=== PATIENT | male | born 1965 | race Caucasian/White ===

== ENCOUNTER 2024-10-07 08:31 | Outpatient (CLI) | payer SELFPAY | END 2024-10-07 08:32 | disposition home or self-care (01) | LOC: NFLDREF 10-11 08:04 | PROVIDERS: PCP Nurse Practitioner Family; Referring Provider Nurse Practitioner Family; Visit Provider Nurse Practitioner Family | DX: I10 Essential (primary) hypertension (principal); E11.9 Type 2 diabetes mellitus without complications | CPT/HCPCS: 80053 ==

== ENCOUNTER 2025-01-15 19:04 | Emergency (ER) | payer MEDICAID, OTHER, SELFPAY ==
[2025-01-15 19:08] VITALS: BP 163/93; PULSE 97; RESP 18; TEMP 37.1; O2SAT 98; BMI 28.1
--- NOTE | 2025-01-15 20:15 | ED.GENADULT ---
HPI - General Adult General Time Seen by Provider: 20:15 Date Seen: 01/15/25 Chief complaint: Difficulty Swallowing Stated complaint: food stuck in throat Time Seen by Provider: 01/15/25 20:14 Source: patient and RN notes reviewed Mode of arrival: ambulatory Limitations: no limitations History of Present Illness HPI narrative: This 59-year-old male is coming into the ER with concern of food in his esophagus. He states about 10 days ago he fell sleep on the couch, had a cough drop that he started to swallow, it ended up going into his throat, he jumped up so it would not go into his airway. He felt like that got lodged. On Monday, he went to [employer] and ate chicken, he felt like that stuck in his throat. He since has been able to drink fluids, he ate a small amount of a eggs today. He does have a sense of something feeling stuck in his esophagus but has been able to eat and drink. He is having no difficulty breathing, no acute pain at this time, no fevers or chills. He follows with Odalys Conner, has diabetes, had labs with normal kidney functions. He notes they increased his diabetic medicines/insulin over the summer and his diabetes has improved. He notes he does not have insurance right now. He stated he called the clinic earlier in they told him that they do endoscopy here. I did review with him that we certainly do endoscopy here but we do not do emergent endoscopy, our endoscopy center is not open after hours. He did state that he drank some Coke prior to coming in and actually his esophagus does feel better. Related Data Home Medications ?Medication ?Instructions ?Recorded ?Confirmed berberine-herbal comb no.18 capsule cap PO 02/21/24 01/15/25 lisinopril 5 mg tablet 5 mg PO DAILY 01/15/25 01/15/25 Previous Rx's ?Medication ?Instructions ?Recorded pen needle, diabetic 31 gauge x #100 ea 10/07/24 metformin 1,000 mg tablet 1,000 mg PO BID #60 tabs 10/30/24 insulin glargine 100 unit/mL (3 15 unit (0.15 mL) subcut QDAY #15 12/26/24 mL) subcutaneous pen (Lantus mL Solostar U-100 Insulin) Allergies Allergy/AdvReac Type Severity Reaction Status Date / Time tetracycline Allergy Rash Verified 01/15/25 19:07 Review of Systems Narrative: As per HPI. [facility] Medical History (Updated 01/15/25 @ 20:32 by Tari Farris MD) Hypertension ?I10 - Essential (primary) hypertension (ICD-10) Type 2 diabetes mellitus ?E11.9 - Type 2 diabetes mellitus without complications (ICD-10) Exam Const: Vital Signs, click to edit/add: Vital Signs - 24 hr 01/15/25 19:08 Temperature 98.8 F Pulse Rate [Pulse Oximeter] 97 Respiratory Rate 18 Blood Pressure [Ri ght Upper Arm] 163/93 H Pulse Oximetry 98 Oxygen Delivery Me thod Room Air This 5-year-old male is alert, interactive, no apparent distress. He has traumatic change his left eye, complete visual loss. Right sclera and pupil are normal. Symmetrical facial function, speech is normal, no hoarseness. Oropharynx with normal posterior pharynx, mucosa is normal. Neck is supple, no masses, no adenopathy. Lungs are clear, good air entry, no wheezing crackles, no tachypnea, no accessory muscle use. CV regular rate and rhythm, no murmur, normal S1-S2. Documenting provider has reviewed patient's vital signs: yes Course Course ED Course: Reviewed with patient that he does not require an emergent EGD, would not recommend that he go to another ER as he does not have an active food bolus obstructing. May have a sense of dysphagia from irritation from prior food bolus, could be underlying etiology like esophageal web or stricture. He in I discussed the need for soft foods, drink plenty of fluids. I will place an order for an EGD for him, they will hopefully contact him tomorrow to get this scheduled. Vital Signs Vital signs: Initial Vital Signs Temperature 98.8 F 01/15/25 19:08 Temperature Source Temporal Artery Scan 01/15/25 19:08 Pulse Rate 97 01/15/25 19:08 Respiratory Rate 18 01/15/25 19:08 Blood Pressure 163/93 H 01/15/25 19:08 Blood Pressure Mean 116 H 01/15/25 19:08 Pulse Oximetry 98 01/15/25 19:08 Oxygen Delivery Method Room Air 01/15/25 19:08 Vital Signs Temperature 98.8 F 01/15/25 19:08 Pulse Rate 97 01/15/25 19:08 Respiratory Rate 18 01/15/25 19:08 Blood Pressure 163/93 H 01/15/25 19:08 Pulse Oximetry 98 01/15/25 19:08 Oxygen Delivery Method Room Air 01/15/25 19:08 Temperature 98.8 F 01/15/25 19:08 Pulse Rate 97 01/15/25 19:08 Respiratory Rate 18 01/15/25 19:08 Blood Pressure 163/93 H 01/15/25 19:08 Pulse Oximetry 98 01/15/25 19:08 Oxygen Delivery Method Room Air 01/15/25 19:08 Discharge Plan Discharge Clinical Impression: Dysphagia Qualifiers: Dysphagia type: unspecified Qualified Code(s): R13.10 - Dysphagia, unspecified Patient Disposition: Home, Self-Care Condition: Stable Instructions: Soft Diet (ED), Dysphagia (ED), Upper Endoscopy (DC) Additional Instructions: Your esophagus certainly could be irritated from recent impaction of the cough drop in subsequent issues with the chicken. Try to avoid meat and breads as they can impact easier. Stay on soft foods, review the diet provided. Recommend plenty of fluids. I have put an order in for an EGD here, the endoscopy clinic here at the hospital should hopefully call you tomorrow to get that scheduled. In the meantime, should you have a food impaction that would happen, we do not have emergent endoscopy after hours. During week daytime hours, we usually have somebody in the scope center and certainly can come here. We are usually able to get people in relatively quickly for endoscopy, really try to be careful with your diet to avoid further food bolus impaction. Prescriptions: No Action berberine-herbal comb no.18 Capsule PO (DME) pen needle, diabetic 31 gauge x 5/32 needle See Rx Instructions .Route Qty: 100 0RF Rx Instructions: once daily lisinopril 5 mg tablet 5 mg PO DAILY metformin 1,000 mg tablet 1,000 mg PO BID Qty: 60 4RF insulin glargine [Lantus Solostar U-100 Insulin] 100 unit/mL (3 mL) insulin pen 15 unit subcut QDAY Qty: 15 0RF Follow Up/Referrals: Odalys Conner, COREMAKER SUPERVISOR [Primary Care Provider, Family Practice] [facility] Info Inst[facility]
== END 2025-01-15 20:42 | disposition home or self-care (01) ==
LOC: ED 20:37
PROVIDERS: Emergency Provider Family Medicine; PCP Nurse Practitioner Family
DX: R13.10 Dysphagia, unspecified (principal)
CPT/HCPCS: 99283

== ENCOUNTER 2025-01-21 12:00 | Outpatient (CLI) | payer OTHER, SELFPAY ==
--- NOTE | 2025-01-21 13:28 | P.ANES_ITS ---
Anesthesia Charges Start Date/Time Anesthesia Start Date: 01/21/25 Anesthesia Start Time: 13:00 Stop Date/Time Anesthesia Stop Date: 01/21/25 Anesthesia Stop Time: 13:25 Coding CPT Codes CPT Codes: ANES UPR GI NDSC PX NOS - 62979 ([id number]) P2 - PATIENT W/MILD SYST DISEASE, QK - GETTERING OPERATOR 2-4 CNCRNT ANES PROC, QX - HAND ALTERATIONS SEAMSTRESS SVC W/ MD MED DIRECTION
--- NOTE | 2025-01-21 13:28 | W.ANESCHARGE ---
Anesthesia Charges Start Date/Time Anesthesia Start Date: 01/21/25 Anesthesia Start Time: 13:00 Stop Date/Time Anesthesia Stop Date: 01/21/25 Anesthesia Stop Time: 13:25 Coding CPT Codes CPT Codes: ANES UPR GI NDSC PX NOS - 55530 ([id number]) P2 - PATIENT W/MILD SYST DISEASE, QK - REGISTERED NURSE NURSERY 2-4 CNCRNT ANES PROC, QX - SANDWICH PEDDLER SVC W/ MD MED DIRECTION
--- NOTE | 2025-01-21 13:56 | P.ANES_ITS ---
Anesthesia Charges Start Date/Time Anesthesia Start Date: 01/21/25 Anesthesia Start Time: 13:00 Stop Date/Time Anesthesia Stop Date: 01/21/25 Anesthesia Stop Time: 13:25 Coding CPT Codes CPT Codes: ANES UPR GI NDSC PX NOS - 57849 ([id number]) P2 - PATIENT W/MILD SYST DISEASE, QK - FACILITY ATTENDANT 2-4 CNCRNT ANES PROC, QX - AIR COMPRESSOR MECHANIC SVC W/ MD MED DIRECTION
--- NOTE | 2025-01-21 13:56 | W.ANESCHARGE ---
Anesthesia Charges Start Date/Time Anesthesia Start Date: 01/21/25 Anesthesia Start Time: 13:00 Stop Date/Time Anesthesia Stop Date: 01/21/25 Anesthesia Stop Time: 13:25 Coding CPT Codes CPT Codes: ANES UPR GI NDSC PX NOS - 06316 ([id number]) P2 - PATIENT W/MILD SYST DISEASE, QK - ENDOSCOPY SUPPORT SPECIALIST 2-4 CNCRNT ANES PROC, QX - PARACHUTE LINE TIER SVC W/ MD MED DIRECTION
== END 2025-01-21 12:01 | disposition home or self-care (01) ==
LOC: OP CLINIC 12:02
PROVIDERS: PCP Nurse Practitioner Family; Visit Provider Internal Medicine
DX: R13.10 Dysphagia, unspecified (principal); K22.89 Other specified disease of esophagus
CPT/HCPCS: 00731; 43239; 88305; 88342; J2704; J3490

== ENCOUNTER 2025-02-02 08:50 | Inpatient (IN) | payer OTHER, SELFPAY ==
[2025-02-02] VITALS (9 sets, daily range): BP systolic 133–152; BP diastolic 79–101; PULSE 76–98; RESP 18–28; TEMP 36.4–37.2; O2SAT 97–99; BMI 26.9; BMI 25.4; BMI 25.5
--- OUTSIDE RECORDS SUMMARY | 2025-02-02 08:52 | XMS_ITS | Clinical Summary ---
Author Organization [employer] [facility] Address [address] [place] [id number] Care Team Providers Care Air Traffic Control Supervisor Name Role Phone Pcp, No Primary Care Provider Unavailabl e Allergies Active Allergy Reactions Criticality Noted Date Comments Tetracycline Other - Describe In Comment Field 09/16/2014 Patient states tingling, numbness Radha Benson LPN.................09/16 11:53 AM Medications metFORMIN (GLUCOPHAGE) 1,000 mg tablet Take 1 tablet by mouth 2 times daily with meals. 0 5 Active atorvastatin (LIPITOR) 40 mg tablet Take 1 tablet by mouth once daily. 0 5 Active gentamicin-predniso LONE, 0.3%-1%, (PRED-G) ophthalmic suspension 1 Drop 4 times daily. 1 Bottle 0 5 Active ondansetron (ZOFRAN ODT) 4 mg disintegrating tabletIndications:N ausea Place 1 tablet on the tongue every 8 hours if needed for Nausea/Vomi ting. 25 tablet 0 5 Active lisinopril-hydrochl orothiazide 20-12.5 mg tablet (PRINIZIDE) Take 1 tablet by mouth once daily. 0 5 Active glipiZIDE extended-release (GLUCOTROL XL) 10 mg Extended-Release tablet Take 1 tablet by mouth once daily before a meal. 0 5 Active ofloxacin 0.3 % ophthalmic (OCUFLOX) 0.3 % ophthalmic solutionIndications :Acute bacterial conjunctivitis of left eye Place 2 Drops into left eye four times daily. 5 mL 3 Active Active Problems No known active problems Encounters Date Type Department Care Team Description 01/22/2025 Lab Requisition [facility] [phone] Wenceslao Oviedo MD from Last 3 Months Social History Tobacco Use Types Packs/Day Years Used Date Smoking Tobacco: Former Cigarettes 0.5 3 0 04/10/1981 - 04/10/1984 Smokeless Tobacco: Never Tobacco Cessation:Counseling Given: Not Answered Alcohol Use Standard Drinks/Week Comments Yes 0 (1 standard drink = 0.6 oz pur e alcohol) occ Sex and Gender Information Value Date Recorded Sex Assigned at Not on file Legal Sex Male 5:44 AM COBBLER UPPER Gender Identity Not on file Sexual Orientation Not on file Obstetrics History Last Filed Vital Signs Vital Sign Reading Time Taken Comments Blood Pressure 140/90 04/01/2023 2:50 PM COBBLER UPPER Pulse 99 04/01/2023 2:23 PM COBBLER UPPER Temperature 36.7 C (98.1 F) 04/01/2023 2:23 PM COBBLER UPPER Respiratory Rate 16 04/01/2023 2:23 PM COBBLER UPPER Oxygen Saturation 96% 04/01/2023 2:23 PM COBBLER UPPER Inhaled Oxygen Concentration - - Weight 81.4 kg (179 lb 6.4 oz) 04/01/2023 2:23 P M COBBLER UPPER Height 180.3 cm (5' 10.98) 10/09/2014 11:14 AM CDT Body Mass Index 25.03 10/09/2014 11:14 AM CDT Plan of Treatment Health Maintenance Due Date Last Done Comments Tetanus booster 08/17/1975 Depression screening for age 12+ 1976 HIV for age 15-65 08/17/1979 BMI (ht and wt on same day) for age 18+ 1982 Hepatitis C screening for ag e 18-79 1982 Colonoscopy through age 75 2009 Lipids for age 45-75 2009 Pneumococcal series for age 50+ (1 of 1 - PCV) 2014 Zoster (shingles) series for age 50+ (1 of 2) 2014 COVID-19 vaccine series (1 - 2023- season) 2024 Influenza Vaccine (#1) 2024 RSV vaccine for adults or (1 - 1-dose 75+ series) 08/17/2039 Hepatitis B series for 19+ Aged Out N o longer eligible based on patient's age to complete this topic Procedures Procedure Name Priority Date/Time Associated Diagnosis Comments PATH TISSUE EXAM Routine 01/21/2025 1:26 PM CDT LAB TRACKING EVENT Routine 01/21/2025 1: 12 PM CDT from Last 3 Months Results * PATH TISSUE EXAM (01/21/2025 1:26 PM CDT) Case Report Pathology Report Case: [id number] Authorizing Provider: Wenceslao Oivedo MD Collected: 01/21/2025 1326 Ordering Location: [facility] Received: 01/23/2025 1700 Pathologist: Dean Vanessa MD Specimens: A) - Duodenum Biopsy B) - Stomach Biopsy C) - Distal Esophagus Biopsy D) - Mid Esophagus Biopsy 11:16 AM CDT [facility] Study2gether [facility] Final Diagnosis A) DUODENUM, BIOPSY: 1. Single fragment of normal duodenal mucosa 2. Negative for celiac disease and other enteropathy B) STOMACH, BIOPSY: 1. Mild non-specific chronic inflammation (see comment) a. Sampling: Body mucosa b. Distribution: Body mucosa 2. Negative for atrophic gastritis 3. Negative for Helicobacter (Helicobacter immunohistochemistry negative) C) ESOPHAGUS, DISTAL, BIOPSY: 1. Normal esophageal squamous mucosa 2. Gastric cardio-oxyntic type mucosa with nonspecific reactive changes 3. Negative for reflux changes and eosinophilic esophagitis 4. Negative for intestinal metaplasia and dysplasia D) ESOPHAGUS, MID, BIOPSY: 1. Normal esophageal squamous mucosa 2. Negative for reflux changes and eosinophilic esophagitis 3. Negative for columnar mucosa 11:16 AM CDT [facility] at 1115 CDT Comment B) Mild chronic inflammation in the stomach in the absence of Helicobacter often remains unexplained, but it could reflect prior or treated Helicobacter infection. The likelihood of histologically undetected Helicobacter is quite low in our opinion. 11:16 AM CDT [facility] Clinical Information Dysphagia EGD findings: Normal 11:16 AM CDT [facility] Gross Description A) Received in formalin is a pete mucosal fragment measuring 7 mm in greatest dimension, which is entirely submitted in one cassette. It is labeled with the patient's name and designated duodenum, first portion. B) Received in formalin are 4 pete mucosal fragments ranging from 3 mm to 7 mm in greatest dimension, which are entirely submitted in one cassette. It is labeled with the patient's name and designated stomach, random. C) Received in formalin is a pete mucosal fragment measuring 4 mm in greatest dimension, which is entirely submitted in one cassette. It is labeled with the patient's name and designated distal esophagus. D) Received in formalin are 2 pete mucosal fragments averaging 4 mm in greatest dimension, which are entirely submitted in one cassette. It is labeled with the patient's name and designated mid esophagus. Tammy Garcia 01/23/2025 6:10 PM 11:16 AM CDT [facility] Microscopic Description The final diagnosis is based on microscopic examination of appropriate sections of all specimens. 11:16 AM CDT [facility] Additional Information Interpreted at [facility] - [address] [facility] [address], [place] [address] Immunohistochemistry controls were reviewed and approved as appropriate by the pathologist during this examination. 11:16 AM CDT [facility] Other (Duodenum Biopsy) 01/21/2025 1:26 PM CDT 01/23/2025 5:00 PM CDT Specimen (specimen) (Stomach Biopsy) 01/21/2025 1:26 PM CDT 01/23/2025 5:00 PM CDT Specimen (specimen) (Distal Esophagus Biopsy) 01/21/2025 1:26 PM CDT 01/23/2025 5:00 PM CDT Specimen (specimen) (Mid Esophagus Biopsy) 01/21/2025 1:26 PM CDT 01/23/2025 5:00 PM CDT us Wenceslao Oviedo MD PATHOLOGY/CYTOLOGY Final Res ult [facility] [address] [place] [address], [place] * LAB TRACKING EVENT (01/21/2025 1:12 PM CDT) Other (Other) Client Collect / Unknown 01/21/2025 1:12 PM CDT 01/22/2025 8:32 AM CDT us Wenceslao Oviedo MD LAB BILL ONLY Final Result [facility] [address] [place] [address], from Last 3 Months Care Teams Air Traffic Control Supervisor Relationship Specialty Start Date End Date Pcp, No . PCP - General 09/12/14
--- OUTSIDE RECORDS SUMMARY | 2025-02-02 08:52 | XMS_ITS | Clinical Summary ---
Author Organization [facility] Address [address] [place] [address] Care Team Providers Care Fish Roe Technician Name Role Phone Unavailable Primary Care Provider Unavailabl e Allergies Active Allergy Reactions Criticality Noted Date Comments Tetracycline 10/02/2014 Medications prednisoLONE acetate (PRED FORTE) 1 % ophthalmic susp Place 1 drop Into the left eye 4 times daily Active metFORMIN (GLUCOPHAGE) 1000 MG tabletIndicatio ns:Type 2 diabetes mellitus with diabetic neuropathy, without long-term current use of insulin (H) Take 1 tablet (1,000 mg) by mouth daily (with dinner) 90 tablet 3 11/25/2016 Active blood glucose monitoring (NO BRAND SPECIFIED) test stripIndication s:Type 2 diabetes mellitus without complication, without long-term current use of insulin (H) Use to test blood sugars 0ne times daily or as directed 100 strip 03/21/2017 Active metFORMIN (GLUCOPHAGE) 500 MG tabletIndicatio ns:Type 2 diabetes mellitus without complication, without long-term current use of insulin (H) Take 1 tablet (500 mg) by mouth daily (with dinner) 90 tablet 1 03/21/2017 Active Active Problems Problem Noted Date Diagnosed Date Type 2 diabetes mellitus wit hout complication, without long-term current use of insulin 02/11/2016 Benign essential hypertension 02/11/2016 Hyperglycemia 02/22/2015 Resolved Problems Problem Noted Date Diagnosed Date Resolved Date Type 2 diabetes mellitus wit h hyperosmolarity without coma 03/25/2015 02/11/2016 Immunizations Immunization Administration Dates Next Due Influenza Vaccine 18-64 (Flublok) 02/14/2019,12/2017 Influenza Vaccine >6 months,quad, PF 03/21/2017, 03/23/2016,01/13/2015 Pneumococcal 23 valent 01/13/2015 TDAP Vaccine (Adacel) 04/22/2016 Social History Tobacco Use Types Packs/Day Years Used Date Smoking Tobacco: Former Smokeless Tobacco: Former Tobacco Cessation:Counseling Given: Yes Alcohol Use Standard Drinks/Week Comments Yes 0 (1 standard drink = 0.6 oz pur e alcohol) casually PHQ-2 Answer Date Recorded PHQ-2 Score 0 04/17/2018 Sex and Gender Information Value Date Recorded Sex Assigned at Not on file Legal Sex Male 3:43 AM MECHANICAL SERVICE REPRESENTATIVE Gender Identity Not on file Sexual Orientation Not on file Last Filed Vital Signs Vital Sign Reading Time Taken Comments Blood Pressure 138/88 03/21/2017 11:41 AM MECHANICAL SERVICE REPRESENTATIVE Pulse 60 03/21/2017 11:41 AM MECHANICAL SERVICE REPRESENTATIVE Temperature 36.3 C (97.4 F) 03/21/2017 11:41 AM MECHANICAL SERVICE REPRESENTATIVE Respiratory Rate 12 03/21/2017 11:4 1 AM MECHANICAL SERVICE REPRESENTATIVE Oxygen Saturation 100% 11/25/2016 10: 29 AM CDT Inhaled Oxygen Concentration - - Weight 64.9 kg (143 lb) 03/21/2017 11:4 1 AM MECHANICAL SERVICE REPRESENTATIVE patient reported Height 180.3 cm (5' 11) 03/21/2017 11: 41 AM MECHANICAL SERVICE REPRESENTATIVE Body Mass Index 19.94 03/21/2017 11:41 AM MECHANICAL SERVICE REPRESENTATIVE Plan of Treatment Not on file
--- NOTE | 2025-02-02 09:20 | CRLHL7_ITS ---
For Patients: As a result of the Century Cures Act, medical imaging exams and procedure reports are released immediately into your electronic medical record. You may view this report before your referring provider. If you have questions, please contact your health care provider. INDICATION: Shortness of breath. COMPARISON: None available. TECHNIQUE: PA and lateral views of the chest. FINDINGS: Medical Devices: None. Lung Volumes: Adequate inspiration. Lungs: Bibasilar atelectasis. Consolidation may coexist. Recommend clinical correlation as to any corroborative evidence of pneumonia. Pleura and Pleural spaces: Bilateral small pleural effusions. No pneumothorax. Mediastinum: Normal cardiomediastinal silhouette. Bony Thorax and Soft Tissues: No significant incidental findings. IMPRESSION: Bibasilar atelectasis associated with small bilateral pleural effusions. Consolidation may coexist. Recommend clinical correlation as to any corroborative evidence of pneumonia. Dictated by Mohsen Pickard MD @ 02/02/2025 9:40:24 AM (Electronically Signed)
[2025-02-02] MEDS: FUROSEMIDE 10 MG/ML inj 40 MG IVP ×2 (09:43→16:19)
[2025-02-02 09:51] LABS: Hematocrit* 40.7 % (37.0-53.0); Hemoglobin* 13.7 gm/dL (13.5-17.5); Immature Granulocytes Abs Auto 0.01 K/uL (0.00-0.30); Immature Granulocytes Pct Auto 0.1 %; Mean Corpuscular HGB Conc 34 gm/dL (32-36); Mean Corpuscular Hemoglobin 31 pg (26-34); Mean Corpuscular Volume 91 fL (80-100); RDW Coefficient of Variation % 13.3 % (11.5-15.5); Red Blood Count* 4.49 m/uL (4.30-5.90); White Blood Count* 8.58 K/uL (4.50-11.00)
[2025-02-02 09:55] LABS: Lymphocytes Absolute Auto 1.30 K/uL (0.90-2.90)
[2025-02-02 09:56] LABS: Slide Review Reflex No
[2025-02-02 10:19] LABS: Albumin* 3.6 g/dL (3.3-5.0); Chloride* 100 mmol/L (96-114); Sodium* 133 mmol/L (135-149)
[2025-02-02 10:20] LABS: Potassium* 4.1 mmol/L (3.6-5.1)
[2025-02-02 10:22] LABS: Alanine Aminotransferase* 36 U/L (4-50); Alkaline Phosphatase* 87 U/L (40-150); Anion Gap 5 mEq/L (7-15); Aspartate Amino Transferase* 28 U/L (12-35); Bilirubin Direct* 0.2 mg/dL (0.0-0.5); Bilirubin Total* 0.9 mg/dL (0.1-1.5); Blood Urea Nitrogen* 18 mg/dL (7-30); Carbon Dioxide* 28 mmol/L (20-32); Creatinine* 0.9 mg/dL (0.5-1.5); Est. Creatinine Clearance* 92.96; Estimated Glomerular Filt Rate 98 ml/min; Total Protein* 6.0 g/dL (6.0-8.3)
[2025-02-02 10:23] LABS: Calcium* 8.8 mg/dL (8.4-10.6); Glucose* 88 mg/dL (60-115)
[2025-02-02 10:30] LABS: Troponin, Point-of-Care* 0.02 ng/ml (0.01-0.04)
[2025-02-02 10:34] LABS: NT Pro B Type NatriureticPept* 5060 pg/mL (See Note)
--- NOTE | 2025-02-02 11:12 | ED.GENADULT ---
HPI - General Adult General Date Seen: 02/02/25 Chief complaint: Shortness of Breath/Dyspnea Stated complaint: breathing problems and male genital issue Time Seen by Provider: 02/02/25 09:10 History of Present Illness HPI narrative: Patient is a 59-year-old male presenting with shortness of breath, which he notes has been worsening over the past week or 2. He was seen here couple of weeks ago, at that time complain more of a sensation of esophageal foreign body, although he says now that he thinks that was the start of these symptoms. He did undergo upper endoscopy on the which was unremarkable. He says since then he has been getting more shortness of breath, describes orthopnea and PND, notes swelling in his legs as well as a significantly swollen scrotum without any pain. He denies having chest pain, denies any prior cardiac history. He does have a history of type 2 diabetes and hypertension. He quit smoking many years ago. Denies significant alcohol use. Related Data Home Medications ?Medication ?Instructions ?Recorded ?Confirmed berberine-herbal comb no.18 capsule cap PO 02/21/24 01/15/25 lisinopril 5 mg tablet 5 mg PO DAILY 01/15/25 02/02/25 lisinopril 10 mg tablet 10 mg PO DAILY 02/02/25 02/02/25 Previous Rx's ?Medication ?Instructions ?Recorded metformin 1,000 mg tablet 1,000 mg PO BID #60 tabs 10/30/24 insulin glargine 100 unit/mL (3 15 unit (0.15 mL) subcut QDAY #15 12/26/24 mL) subcutaneous pen (Lantus mL Solostar U-100 Insulin) pen needle, diabetic 31 gauge x #100 ea 01/21/25 Allergies Allergy/AdvReac Type Severity Reaction Status Date / Time tetracycline Allergy Rash Verified 02/02/25 09:07 Review of Systems Status of ROS: Reports: 10 or more systems reviewed and unremarkable except as noted in History and below [facility] Medical History Hypertension ?I10 - Essential (primary) hypertension (ICD-10) Type 2 diabetes mellitus ?E11.9 - Type 2 diabetes mellitus without complications (ICD-10) Exam Narrative: Exam Narrative: Vital signs reviewed In general, alert, nontoxic man, looks older than his stated age. Mild tachypnea. Head: Normocephalic, atraumatic. Eyes: Sclera clear. Pupils equal and reactive. ENT: Mucous membranes moist. Neck: Supple without adenopathy. Heart: Regular rate and rhythm without murmur. Lungs: Breath sounds are decreased bilaterally, no significant increased work of breathing other than mild tachypnea. No crackles or wheezes. Abdomen: Soft, nontender to palpation. Extremities: Large pitting edema bilateral lower extremities. No erythema or tenderness. Neurologic: Alert, conversant. Speech fluent, face symmetric. Moves all extremities equally. Skin: Warm, dry well perfused. Affect: Normal. Const: Vital Signs, click to edit/add: Vital Signs - 24 hr 02/02/25 08:57 02/02/25 10:25 02/02/25 11:01 Temperature 99.0 F Pulse Rate [Pulse Oximeter] 79 96 Respiratory Rate 26 H 28 H Blood Pressure [Ri ght Upper Arm] 147/87 H 134/79 Pulse Oximetry 99 97 Oxygen Delivery Me thod Room Air Room Air Course Course ED Course: Patient presents with worsening shortness of breath, orthopnea, P ND, edema over the past week and half. Diagnostic considerations would include most likely congestive heart failure, rule out renal insufficiency, acute coronary syndrome, myocarditis, Following initial evaluation, patient had an EKG which by my review shows a sinus rhythm, ventricular rate of 100. Poor R-wave progression, no acute ST segment changes unremarkable T-waves. Labs were ordered, an IV was placed and I gave him 40 mg of IV Lasix. Labs notable for white count of 8.5, hemoglobin of 13.7, electrolytes are normal, BUN 18 creatinine 0.9. Blood sugar is 88, LFTs unremarkable, CRP less than 0.5 and BNP elevated at 5060. Chest x-ray by my review showed small bilateral pleural effusions, radiology report reviewed in the note that underlying infiltrate cannot be ruled out. I am less suspicious of an infectious cause for his symptoms. Point of care troponin was normal at 0.02. Reviewed the findings with patient, he has had good diuresis with the Lasix and says he is starting to feel better. His O2 sats have remained around 97% on room air. I did look with a bedside ultrasound, he has significantly reduced left ventricular function based on my exam. Discussed with cardiology who recommends admission for IV diuresis, echo. Discussed with hospitalist, admitted to our service. Vital Signs Vital signs: Initial Vital Signs Temperature 99.0 F 02/02/25 08:57 Temperature Source Temporal Artery Scan 02/02/25 08:57 Pulse Rate 79 02/02/25 08:57 Respiratory Rate 26 H 02/02/25 08:57 Blood Pressure 147/87 H 02/02/25 08:57 Blood Pressure Mean 107 H 02/02/25 08:57 Blood Pressure Position Sitting 02/02/25 08:57 Pulse Oximetry 99 02/02/25 08:57 Oxygen Delivery Method Room Air 02/02/25 08:57 Vital Signs Temperature 99.0 F 02/02/25 08:57 Pulse Rate 79 02/02/25 08:57 Respiratory Rate 26 H 02/02/25 08:57 Blood Pressure 147/87 H 02/02/25 08:57 Pulse Oximetry 99 02/02/25 08:57 Oxygen Delivery Method Room Air 02/02/25 08:57 Temperature 99.0 F 02/02/25 08:57 Pulse Rate 96 02/02/25 11:01 Respiratory Rate 28 H 02/02/25 11:01 Blood Pressure 134/79 02/02/25 10:25 Pulse Oximetry 97 02/02/25 11:01 Oxygen Delivery Method Room Air 02/02/25 11:01 Medications Administered Medications: Discontinued Medications Generic Name Dose Route Start Last Admin Trade Name Freq PRN Reason Stop Dose Admin Furosemide 40 mg 02/02/25 09:19 02/02/25 09:43 Furosemide 10 Mg/Ml Inj IVP 02/02/25 09:20 40 mg ONCE ONE Administration Medical Decision Making Lab Data Labs: Lab Results 02/02/25 02/02/25 Range/Units 09:20 09:35 WBC 8.58 (4.50-11.00) K/uL RBC 4.49 (4.30-5.90) m/uL Hgb 13.7 (13.5-17.5) gm/dL Hct 40.7 (37.0-53.0) % MCV 91 (80-100) fL MCH 31 (26-34) pg MCHC 34 (32-36) gm/dL RDW Coeff of Jelani 13.3 (11.5-15.5) % Plt Count 297 (140-440) K/uL Neut % (Auto) 76.2 H (42.0-72.0) % Lymph % (Auto) 15.3 L (20-44) % [place] % (Auto) 6.3 (0.0-11.0) % Eos % (Auto) 1.6 (0.0-7.0) % Baso % (Auto) 0.5 (0.0-3.0) % Neut # (Auto) 6.50 (1.7-7.0) K/uL Lymph # (Auto) 1.30 (0.90-2.90) K/uL [place] # (Auto) 0.50 (0.00-0.90) K/UL Eos # (Auto) 0.14 (0.00-0.50) K/uL Baso # (Auto) 0.04 (0.00-0.30) K/uL Abs Immat Gran (auto) 0.01 (0.00-0.30) K/uL Imm/Tot Granulo (auto) 0.1 % Sodium 133 L (135-149) mmol/L Potassium 4.1 (3.6-5.1) mmol/L Chloride 100 (96-114) mmol/L Carbon Dioxide 28 (20-32) mmol/L Anion Gap 5 L (7-15) mEq/L BUN 18 (7-30) mg/dL Creatinine 0.9 (0.5-1.5) mg/dL Estimated Creat Clear 92.96 Estimated GFR 98 ml/min Glucose 88 (60-115) mg/dL Calcium 8.8 (8.4-10.6) mg/dL Magnesium 1.9 (1.5-2.6) mg/dL Total Bilirubin 0.9 (0.1-1.5) mg/dL Direct Bilirubin 0.2 (0.0-0.5) mg/dL AST 28 (12-35) U/L ALT 36 (4-50) U/L Alkaline Phosphatase 87 (40-150) U/L C-Reactive Protein < 0.5 L (0.5-1.0) mg/dL NT-Pro-B Natriuret Pep 5060 H (See Note) pg/mL Total Protein 6.0 (6.0-8.3) g/dL Albumin 3.6 (3.3-5.0) g/dL POC Troponin I 0.02 (0.01-0.04) ng/ml Discharge Plan Discharge Clinical Impression: Congestive heart failure Patient Disposition: Admitted As Inpatient Condition: Stable
--- NOTE | 2025-02-02 14:21 | P.IMHP_ITS ---
Assessment and Plan Assessment and plan (1) Congestive heart failure: Problem comment: - acute, new diagnosis. Likely exacerbated recently by switch to canned foods and restarting use of table salt. Elevated pro BNP, bilateral ankle and scrotal edema, dyspnea on exertion. Has h/o HTN, DM2. - Admit for diuresis with IV furosemide - Obtain ECHO - Will consider starting Jardiance (for diabetes and CHF) if EF decreased - Monitor on cardiac telemetry - FR, heart healthy, low salt diet. Status: Acute (2) Hypertension: Problem comment: - Noncompliant with lisinopril due to dizziness. Continue at a lower dose. Status: Chronic (3) Type 2 diabetes mellitus: Problem comment: - HgbA1c 10% in September, down to 7.8% by December after starting Lantus. Continue Lantus at home dose. Start ISS and will consider Jardiance as above. Status: Chronic (4) Rash: Problem comment: - Over ankles, diabetic, suspect tinea - Trial of triamcinolone cream Status: Acute (5) Hyponatremia: Problem comment: - Mild asymptomatic, likely due to HF. Start FR, monitor Status: Acute (6) Globus sensation: Problem comment: Several weeks of this symptom, EGD in early January negative. Patient states it is improving, but impairs swallowing to some extent. Speech consult for swallowing. Status: Acute (7) Swallowing problem: Problem comment: as above. Status: Acute Hospitalist- H&P: HPI History of Present Illness Time Seen by Provider: 12:30 Date Seen: 02/02/25 Chief complaint: breathing problems and male genital issue Narrative: Hair Strong is a 59 year old male with a history of hypertension and diabetes mellitus type 2 who presented through the emergency department for dyspnea and lower extremity swelling. He tells me that his symptoms started about 5 weeks ago when he fell asleep on the couch with a lozenge in his mouth that was gone when he woke up and he felt like it had gotten stuck in his throat. After that he had a persistent globus sensation and noted worsening shortness of breath with exertion. Due to the persistent globus sensation he had an EGD on 01/21/2025 which found only an irregular Z-line, biopsies were obtained. Due to the feeling of a globus sensation he had difficulty swallowing his usual diet of homemade foods and switched to canned foods, also adding ?rock salt,? which as far as I can gather is likely pink Himalayan salt. He notes that the globus sensation has started to improve, but has not completely subsided yet. 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 This past week he has noticed worsening lower extremity edema, which was not there before. Today he felt swollen scrotum and said his scrotum looked like it was the size of a grapefruit, which ultimately brought him to the emergency department. He says it is a little bit better now after having gotten Lasix in the emergency department. He denies any recent illnesses, fevers, coughs or colds. He said he was not sick at the time he felt the lozenge get lodged in his throat. He denies chest pain or pressure. Review of Systems Status of ROS: Reports: 10 or more systems reviewed and unremarkable except as noted in History and below Medical Decision Making Medical Decision Making Code Status: FULL CODE Has patient completed a Health Care Directive: No [facility] Medical History DVT (deep venous thrombosis) ?I82.409 - Acute embolism and thrombosis of unspecified deep veins of unspecified lower extremity (ICD-10) Hypertension ?I10 - Essential (primary) hypertension (ICD-10) Type 2 diabetes mellitus ?E11.9 - Type 2 diabetes mellitus without complications (ICD-10) Surgical History (Updated 02/02/25 @ 15:20 by Neisha Rodriguez MD) H/O resection of rib ?Z98.890 - Other specified postprocedural states (ICD-10) H/O vitrectomy ?Z98.890 - Other specified postprocedural states (ICD-10) Social History (Updated 02/02/25 @ 15:20 by Neisha Rodriguez MD) Narrative: Lives independently. 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 Less than 5 year history of smoking when he was in his late teens. No other tobacco use. Alcohol use couple of times a year, less than once a month. Denies recreational drug use. What is your current living situation?: I presently have a place to live Problems where you live: no known problems Problems where you live details: n/a In the past 12 months, utilities in danger of being shut off: no In past 12 months, lack of transportation kept you from medical appts, meetings, work, or getting things needed for daily living: unable to answer In the past 12 mos, have been you worried that your food would run out before you had money to buy more?: never true In the past 12 mos, the food you bought just didn't last and you didn't have money to buy more?: never true Highest level of school completed/degree received: don't know Smoking Status: Unknown if ever smoked Do you use any of these nicotine containing products: None How often do you have a drink containing alcohol: monthly or less How often do you have six or more drinks on one occasion: Never AUDIT-C Alcohol total score: 1 Non-prescribed substance use: denies use Caffeine: No How often does anyone, including family, friends and others, physically hurt you : never How often does anyone, including family, friends and others, insult or talk down to you: never How often does anyone, including family, friends and others, threaten you with harm: never How often does anyone, including family, friends and others, scream or curse at you: never service: No Meds Home Medications and Allergies Home Medications ?Medication ?Instructions ?Recorded ?Confirmed ?Type berberine-herbal comb no.18 capsule 1 cap PO .ud 02/2002/02/25 History metformin 1,000 mg tablet 1,000 mg PO BID #60 tabs 02/02/25 Rx lisinopril 5 mg tablet 5 mg PO HS 01/15/25 02/02/25 History pen needle, diabetic 31 gauge x #100 ea 01/21/25 Rx insulin glargine 100 unit/mL (3 10 unit subcut DAILY 1 02/02/25 History mL) subcutaneous pen (Lantus Solostar U-100 Insulin) Allergies Allergy/AdvReac Type Severity Reaction Status Date / Time tetracycline Allergy Rash Verified 02/02/25 09:07 Exam Narrative: Exam Narrative: General: No acute distress. Awake alert oriented x3. HEENT: Normocephalic atraumatic, left eye cloudy, chronic complete vision loss. Oropharynx clear. Mucous membranes are moist. No cervical lymphadenopathy, thyromegaly or carotid bruits. No JVD. Hepatic jugular reflux is present at 45?. Cardiovascular: Regular rate and rhythm. No murmurs, gallops, or rubs. Chest: No increased work of breathing laying in bed. Diminished breath sounds at bases with fine bibasilar crackles, no wheezing. Abdomen: Bowel sounds present. Soft, nondistended, nontender. No hepatosplenomegaly or masses. Genitourinary: Circumcised male with moderate scrotal edema. Extremities: 2 to 3+ bilateral pitting edema to the thighs, especially prominent in ankles, no cyanosis or clubbing. Skin: Linear spots of erythema over bilateral shins, which patient states are from his boots. There also distinct circular erythematous lesions about the size of quarters over his ankles with mild central clearing and slight scale. There is no discharge from any of these. No jaundice, no pallor. Neuro: Grossly intact. No focal deficits. Const: Vital Signs, click to edit/add: Vital Signs - 24 hr 02/02/25 08:57 02/02/25 10:25 02/02/25 11:01 Temperature 99.0 F Pulse Rate [Pulse Oximeter] 79 96 Respiratory Rate 26 H 28 H Blood Pressure [Ri ght Upper Arm] 147/87 H 134/79 Pulse Oximetry 99 97 Oxygen Delivery Me thod Room Air Room Air 02/02/25 11:55 Temperature Pulse Rate [Pulse Oximeter] 98 Respiratory Rate 28 H Blood Pressure [Ri ght Upper Arm] 141/101 H Pulse Oximetry 98 Oxygen Delivery Co thod Room Air Hospitalist - H&P: Result Labs Labs: Short CBC 02/02/25 Range/Units 09:35 WBC 8.58 (4.50-11.00) K/uL Hgb 13.7 (13.5-17.5) gm/dL Hct 40.7 (37.0-53.0) % Plt Count 297 (140-440) K/uL BMP 02/02/25 09:35 Sodium 133 L Potassium 4.1 Chloride 100 Carbon Dioxide 28 BUN 18 Creatinine 0.9 Glucose 88 Calcium 8.8 Liver Function 02/02/25 Range/Units 09:35 Total Bilirubin 0.9 (0.1-1.5) mg/dL Direct Bilirubin 0.2 (0.0-0.5) mg/dL AST 28 (12-35) U/L ALT 36 (4-50) U/L Alkaline Phosphatase 87 (40-150) U/L Albumin 3.6 (3.3-5.0) g/dL EKG was done in ER, currently unavailable to me. ER staff will scan it in. Ordering Physician: Peace Schmitz M.D. Date of Service: 02/02/25 Procedure(s): XR chest 2V Accession Number(s): [id number] cc: Peace Schmitz M.D.; ANTONIO,Odalys Conner~ For Patients: As a result of the Cures Act, medical imaging exams and procedure reports are released immediately into your electronic medical record. You may view this report before your referring provider. If you have questions, please contact your health care provider. INDICATION: Shortness of breath. COMPARISON: None available. TECHNIQUE: PA and lateral views of the chest. FINDINGS: Medical Devices: None. Lung Volumes: Adequate inspiration. Lungs: Bibasilar atelectasis. Consolidation may coexist. Recommend clinical correlation as to any corroborative evidence of pneumonia. Pleura and Pleural spaces: Bilateral small pleural effusions. No pneumothorax. Mediastinum: Normal cardiomediastinal silhouette. Bony Thorax and Soft Tissues: No significant incidental findings. IMPRESSION: Bibasilar atelectasis associated with small bilateral pleural effusions. Consolidation may coexist. Recommend clinical correlation as to any corroborative evidence of pneumonia. Dictated by Mohsen Pickard MD @ 02/02/2025 9:40:24 AM (Electronically Signed)
--- NOTE | 2025-02-02 14:22 | CRLHL7_ITS ---
For Patients: As a result of the Century Cures Act, medical imaging exams and procedure reports are released immediately into your electronic medical record. You may view this report before your referring provider. If you have questions, please contact your health care provider. Technique : Bilateral lower extremity edema. TECHNIQUE: Grayscale and color Doppler images of the venous system of both lower extremities with spectral Doppler analysis. FINDINGS: The common femoral, superficial femoral, deep femoral, greater saphenous, popliteal, posterior tibial and peroneal veins demonstrate normal flow, compressibility and augmentation bilaterally. IMPRESSION: Negative for deep venous thrombosis within both lower extremities. Dictated by Yves Olson MD @ 02/02/2025 4:22:47 PM (Electronically Signed)
[2025-02-02] MEDS: INSULIN ASPART 100 UNIT/ML SUBCUT (20:44)
[2025-02-02] MEDS: TRIAMCINOLONE ACETONIDE CREAM 0.1 % 1 APPLIC TOPICAL (20:46)
[2025-02-02] MEDS: ENOXAPARIN 40 MG/0.4 ML INJ SUBCUT (20:46)
[2025-02-02] MEDS: SODIUM CHLORIDE 0.9 % (FLUSH) 10 ML SYRINGE 5 ML IVF (20:48)
[2025-02-03 02:36] VITALS: BP 114/74; PULSE 79; RESP 18; TEMP 36.5; O2SAT 94
[2025-02-03 07:00] VITALS: BP 134/82; PULSE 73; PULSE 93; RESP 20; TEMP 37.1; O2SAT 96
[2025-02-03 07:01] LABS: Hematocrit* 42.2 % (37.0-53.0); Hemoglobin* 14.3 gm/dL (13.5-17.5); Immature Granulocytes Abs Auto 0.01 K/uL (0.00-0.30); Immature Granulocytes Pct Auto 0.2 %; Lymphocytes Absolute Auto 1.51 K/uL (0.90-2.90); Mean Corpuscular HGB Conc 34 gm/dL (32-36); Mean Corpuscular Hemoglobin 30 pg (26-34); Mean Corpuscular Volume 90 fL (80-100); RDW Coefficient of Variation % 13.2 % (11.5-15.5); Red Blood Count* 4.71 m/uL (4.30-5.90); White Blood Count* 6.17 K/uL (4.50-11.00)
[2025-02-03 07:02] LABS: Slide Review Reflex No
[2025-02-03 07:14] LABS: Chloride* 96 mmol/L (96-114); Sodium* 133 mmol/L (135-149)
[2025-02-03 07:15] LABS: Potassium* 4.1 mmol/L (3.6-5.1)
[2025-02-03 07:18] LABS: Anion Gap 4 mEq/L (7-15); Blood Urea Nitrogen* 20 mg/dL (7-30); Calcium* 8.7 mg/dL (8.4-10.6); Carbon Dioxide* 33 mmol/L (20-32); Creatinine* 0.9 mg/dL (0.5-1.5); Est. Creatinine Clearance* 92.96; Estimated Glomerular Filt Rate 98 ml/min; Glucose* 82 mg/dL (60-115)
[2025-02-03 07:34] LABS: Procalcitonin* 0.04 ng/mL (<0.50)
[2025-02-03] MEDS: FUROSEMIDE 10 MG/ML inj 40 MG IVP ×2 (08:08→16:03)
[2025-02-03] MEDS: SODIUM CHLORIDE 0.9 % (FLUSH) 10 ML SYRINGE 5 ML IVF ×3 (08:08→21:14)
--- NOTE | 2025-02-03 08:23 | PC.NURSE ---
End of shift [id number]: Pt AxOx3. Denies pain. Able to rest for majority of the night. Indep in room. Urinating frequently. Refused SCDs due to frequent bathroom trips. Call light within reach.
[2025-02-03] MEDS: TRIAMCINOLONE ACETONIDE CREAM 0.1 % 1 APPLIC TOPICAL ×2 (10:04→22:31)
[2025-02-03 11:00] VITALS: BP 143/88; PULSE 77; RESP 20; TEMP 36.4; O2SAT 96
[2025-02-03] MEDS: PERFLUTREN LIPID MICROSPHERES 2 ML VIAL IVP (11:32)
--- NOTE | 2025-02-03 11:38 | PM.IMPN1 ---
Assessment and Plan Assessment and plan (1) Congestive heart failure: Problem comment: - acute, new diagnosis. Likely exacerbated recently by switch to canned foods and restarting use of table salt. Elevated pro BNP, bilateral ankle and scrotal edema, dyspnea on exertion. Has h/o HTN, DM2. - Admit for diuresis with IV furosemide - Obtain ECHO - Will consider starting Jardiance (for diabetes and CHF) if EF decreased - Monitor on cardiac telemetry - FR, heart healthy, low salt diet. Status: Acute (2) Hypertension: Problem comment: - Noncompliant with lisinopril due to dizziness. Continue at a lower dose. Status: Chronic (3) Type 2 diabetes mellitus: Problem comment: - HgbA1c 10% in September, down to 7.8% by December after starting Lantus. Continue Lantus at home dose. Start ISS and will consider Jardiance as above. Status: Chronic (4) Rash: Problem comment: - Over ankles, diabetic, suspect tinea - Trial of triamcinolone cream Status: Acute (5) Hyponatremia: Problem comment: - Mild asymptomatic, likely due to HF. Start FR, monitor Status: Acute (6) Globus sensation: Problem comment: Several weeks of this symptom, EGD in early January negative. Patient states it is improving, but impairs swallowing to some extent. Speech consult for swallowing. Status: Acute (7) Swallowing problem: Problem comment: as above. Status: Acute Subjective Time Seen by Provider: 09:28 Date Seen: 02/03/25 Interval history: Shiv is felling a bit better today, less SOB, notices less swelling in his legs and scrotum. 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 Exam Narrative: Exam Narrative: General: No acute distress. Awake alert oriented. Cardiovascular: Regular rate and rhythm. No murmurs, gallops, or rubs. Chest: No increased work of breathing laying in bed. Better air movement at bases today, persistent bibasilar crackles, no wheezing. Abdomen: Bowel sounds present. Soft, nondistended, nontender. No hepatosplenomegaly or masses. Genitourinary: Persistent moderate scrotal edema. Extremities: 2+ bilateral pitting edema to the knees, prominent in ankles, no cyanosis or clubbing. Skin: Linear spots of erythema over bilateral shins, slight improvement. Const: Vital Signs, click to edit/add: Vital Signs - 24 hr 02/02/25 11:55 02/02/25 13:21 02/02/25 13:21 Temperature 98.2 F Pulse Rate Pulse Rate [Pulse Oximeter] 98 89 Respiratory Rate 28 H 24 24 Blood Pressure [Ri ght Arm] 152/89 H Blood Pressure [Ri ght Upper Arm] 141/101 H Pulse Oximetry 98 98 98 Oxygen Delivery Me thod Room Air Room Air Room Air 02/02/25 15:00 02/02/25 15:00 02/02/25 15:00 Temperature 98.2 F Pulse Rate 95 Pulse Rate [Pulse Oximeter] 79 Respiratory Rate 24 22 Blood Pressure [Ri ght Arm] 150/97 H Blood Pressure [Ri ght Upper Arm] Pulse Oximetry 98 97 Oxygen Delivery Me thod Room Air Room Air 02/02/25 15:00 02/02/25 19:30 02/02/25 22:01 Temperature 97.7 F Pulse Rate Pulse Rate [Pulse Oximeter] 79 93 Respiratory Rate 22 18 18 Blood Pressure [Ri ght Arm] 133/83 Blood Pressure [Ri ght Upper Arm] Pulse Oximetry 97 Oxygen Delivery Me thod Room Air 02/02/25 22:01 02/02/25 22:01 02/02/25 22:14 Temperature 97.6 F Pulse Rate 76 Pulse Rate [Pulse Oximeter] 91 Respiratory Rate 18 18 Blood Pressure [Ri ght Arm] 136/89 Blood Pressure [Ri ght Upper Arm] Pulse Oximetry 97 97 Oxygen Delivery Me thod Room Air Room Air 02/03/25 02:36 02/03/25 07:00 02/03/25 07:00 Temperature 97.7 F 98.7 F Pulse Rate Pulse Rate [Pulse Oximeter] 79 93 Respiratory Rate 18 20 20 Blood Pressure [Ri ght Arm] 114/74 134/82 Blood Pressure [Ri ght Upper Arm] Pulse Oximetry 94 96 96 Oxygen Delivery Me thod Room Air Room Air Room Air 02/03/25 07:00 Temperature Pulse Rate 73 Pulse Rate [Pulse Oximeter] Respiratory Rate Blood Pressure [Ri ght Arm] Blood Pressure [Ri ght Upper Arm] Pulse Oximetry Oxygen Delivery Me thod Labs Labs: Laboratory Results - last 24 hr 02/03/25 05:50 WBC 6.17 RBC 4.71 Hgb 14.3 Hct 42.2 MCV 90 MCH 30 MCHC 34 RDW Coeff of Jelani 13.2 Plt Count 269 Neut % (Auto) 63.3 Lymph % (Auto) 24.5 [place] % (Auto) 8.6 Eos % (Auto) 2.8 Baso % (Auto) 0.6 Neut # (Auto) 3.91 Lymph # (Auto) 1.51 [place] # (Auto) 0.50 Eos # (Auto) 0.17 Baso # (Auto) 0.04 Abs Immat Gran (auto) 0.01 Imm/Tot Granulo (auto) 0.2 Sodium 133 L Potassium 4.1 Chloride 96 Carbon Dioxide 33 H Anion Gap 4 L BUN 20 Creatinine 0.9 Estimated Creat Clear 92.96 Estimated GFR 98 Glucose 82 Calcium 8.7 Procalcitonin 0.04
--- NOTE | 2025-02-03 11:59 | P.DS_ITS ---
Transfer Discharge Sum: Prov Provider Time Seen by Provider: 09:28 Date Seen: 02/03/25 Date of admission: 02/02/25 15:11 Primary care physician: Odalys Conner CNP Consults: 02/02/25 14:10 Consult to Speech Therapy [CONS] Routine Comment: Reason(s) for Speech Consult:: Swallowing Difficulty Attending physician on discharge: Neisha Rodriguez Anticipated date of transfer: 02/03/25 Receiving physician/facility: [facility] DS: Diagnosis Discharge Diagnosis (1) Biventricular CHF (congestive heart failure): Status: Acute Problem details: Severe on echo 02/03/2025, transfer to [facility] for cardiology (2) Congestive heart failure: Status: Acute Problem details: - acute, new diagnosis. Likely exacerbated recently by switch to canned foods and restarting use of table salt. Elevated pro BNP, bilateral ankle and scrotal edema, dyspnea on exertion. Has h/o HTN, DM2. - Admit for diuresis with IV furosemide - Obtain ECHO - Will consider starting Jardiance (for diabetes and CHF) if EF decreased - Monitor on cardiac telemetry - FR, heart healthy, low salt diet. - severe biventricular failure on ECHO, transfer for cardiology (3) Swallowing problem: Status: Acute Problem details: as above. (4) Globus sensation: Status: Acute Problem details: Several weeks of this symptom, EGD in early January negative. Patient states it is improving, but impairs swallowing to some extent. Speech consult for swallowing. (5) Hyponatremia: Status: Acute Problem details: - Mild asymptomatic, likely due to HF. Start FR, monitor (6) Rash: Status: Acute Problem details: - Over ankles, diabetic, suspect tinea - Trial of triamcinolone cream (7) Hypertension: Status: Chronic Problem details: - Noncompliant with lisinopril due to dizziness. Continue at a lower dose. (8) Type 2 diabetes mellitus: Status: Chronic Problem details: - HgbA1c 10% in September, down to 7.8% by December after starting Lantus. Continue Lantus at home dose. Start ISS and will consider Jardiance as above. Transfer Discharge Sum: Med Medications Active and Home Medications: Home Medications berberine-herbal comb no.18 capsule 1 cap PO .ud 02/21/24 [History Confirmed 02/02/25] metformin 1,000 mg tablet 1,000 mg PO BID #60 tabs 10/30/24 [Rx Confirmed 02/02/25] lisinopril 5 mg tablet 5 mg PO HS 01/15/25 [History Confirmed 02/02/25] pen needle, diabetic 31 gauge x 32 #100 ea 01/21/25 [Rx] insulin glargine 100 unit/mL (3 mL) subcutaneous pen (Lantus Solostar U-100 Insulin) 10 unit subcut DAILY 02/02/25 [History Confirmed 02/02/25] Active Medications Enoxaparin Sodium (Enoxaparin 40 Mg/0.4 Ml Inj) 40 mg SUBCUT [facility] Last Admin: 02/02/25 20:46 Dose: 40 mg Furosemide (Furosemide 10 Mg/Ml Inj) 40 mg IVP BID@08,16 [facility] Last Admin: 02/03/25 08:08 Dose: 40 mg Insulin Aspart (Insulin Aspart 100 Unit/Ml) 0 unit SUBCUT [facility]; Protocol Last Admin: 02/03/25 08:04 Dose: Not Given Insulin Glargine (Insulin Glargine,Hum.Rec.Anlog 100 Unit/Ml Insuln.Pen) 10 unit SUBCUT DAILY@19 [facility] Last Admin: 02/02/25 20:43 Dose: 10 unit Lisinopril (Lisinopril 5 Mg Tablet) 2.5 mg PO [facility] Last Admin: 02/02/25 20:47 Dose: 2.5 mg Metformin HCl (Metformin 1,000 Mg Tablet) 1,000 mg PO BID [facility] On Hold: 02/02/25 21:00 Last Admin: 02/02/25 20:53 Dose: Not Given Polyethylene Glycol (Polyethylene Glycol 3350 17 Gm Pack) 17 gm PO DAILY PRN Senna/Docusate Sodium (Sennosides/Docusate Tablet) 1 tab PO DAILY PRN Sodium Chloride (Sodium Chloride 0.9 % (Flush) 10 Ml Syringe) 5 ml IVF .FLUSH PRN Sodium Chloride (Sodium Chloride 0.9 % (Flush) 10 Ml Syringe) 5 ml IVF BID [facility] Last Admin: 02/03/25 08:08 Dose: 5 ml Triamcinolone Acetonide (Triamcinolone Acetonide Cream 0.1 %) 1 applic TOPICAL BID [facility] Last Admin: 02/03/25 10:04 Dose: 1 applic Transfer Discharge Sum: Hosp Hospital Course Hospital course: Hair Strong is a 59 year old male with a history of hypertension and diabetes mellitus type 2 who presented through the emergency department for dyspnea and lower extremity swelling. He tells me that his symptoms started about 5 weeks ago when he fell asleep on the couch with a lozenge in his mouth that was gone when he woke up and he felt like it had gotten stuck in his throat. After that he had a persistent globus sensation and noted worsening shortness of breath with exertion. Due to the persistent globus sensation he had an EGD on 01/21/2025 which found only an irregular Z-line, biopsies were obtained. Due to the feeling of a globus sensation he had difficulty swallowing his usual diet of homemade foods and switched to canned foods, also adding ?rock salt,? which as far as I can gather is likely pink Himalayan salt. He notes that the globus sensation has started to improve, but has not completely subsided yet. 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 This past week he has noticed worsening lower extremity edema, which was not there before. Today he felt swollen scrotum and said his scrotum looked like it was the size of a grapefruit, which ultimately brought him to the emergency department. He says it is a little bit better now after having gotten Lasix in the emergency department. He denies any recent illnesses, fevers, coughs or colds. He said he was not sick at the time he felt the lozenge get lodged in his throat. He denies chest pain or pressure. Shiv is felling a bit better today, less SOB, notices less swelling in his legs and scrotum after some diuresis overnight. His echocardiogram was completed this morning and preliminarily shows a global hypokinesis with an LVEF of 25% with [id number] mitral regurgitation and left and right pleural effusions. I spoke with Dr. Sams from [facility] who accepted this patient in transfer for severe biventricular heart failure. I spoke with the patient who agrees to this plan and also spoke with his father in law over speaker phone in the patient's room per the patient's request. All questions were answered. Please see diagnoses above for further details. Time Spent with Patient Time attestation: Total time spent providing and/or coordinating transfer services: Today I spent 60 minutes seeing and discharging the patient, discussing with Cardiology over the phone, reviewing Expanse and EPIC notes/diagnostics/labs, discussing the care plan with our care team that includes social work, PT/OT, pharmacy, RT, long term and documenting my impressions and plan in the medical record. Exam Narrative: Exam Narrative: General: No acute distress. Awake alert oriented. Cardiovascular: Regular rate and rhythm. No murmurs, gallops, or rubs. Chest: No increased work of breathing laying in bed. Better air movement at bases today, persistent bibasilar crackles, no wheezing. Abdomen: Bowel sounds present. Soft, nondistended, nontender. No hepatosplenomegaly or masses. Genitourinary: Persistent moderate scrotal edema. Extremities: 2+ bilateral pitting edema to the knees, prominent in ankles, no cyanosis or clubbing. Skin: Linear spots of erythema over bilateral shins, slight improvement. Const: Vital Signs, click to edit/add: Vital Signs - 24 hr 02/02/25 13:21 02/02/25 13:21 02/02/25 15:00 Temperature 98.2 F Pulse Rate Pulse Rate [Pulse Oximeter] 89 Respiratory Rate 24 24 24 Blood Pressure [Ri t Arm] 152/89 H Pulse Oximetry 98 98 98 Oxygen Delivery Me thod Room Air Room Air Room Air 02/02/25 15:00 02/02/25 15:00 02/02/25 15:00 Temperature 98.2 F Pulse Rate 95 Pulse Rate [Pulse Oximeter] 79 79 Respiratory Rate 22 22 Blood Pressure [Ri ght Arm] 150/97 H Pulse Oximetry 97 Oxygen Delivery Me thod Room Air 02/02/25 19:30 02/02/25 22:01 02/02/25 22:01 Temperature 97.7 F 97.6 F Pulse Rate Pulse Rate [Pulse Oximeter] 93 91 Respiratory Rate 18 18 18 Blood Pressure [Ri ght Arm] 133/83 136/89 Pulse Oximetry 97 97 Oxygen Delivery Me thod Room Air Room Air 02/02/25 22:01 02/02/25 22:14 02/03/25 02:36 Temperature 97.7 F Pulse Rate 76 Pulse Rate [Pulse Oximeter] 79 Respiratory Rate 18 18 Blood Pressure [Ri ght Arm] 114/74 Pulse Oximetry 97 94 Oxygen Delivery Me thod Room Air Room Air 02/03/25 07:00 02/03/25 07:00 02/03/25 07:00 Temperature 98.7 F Pulse Rate 73 Pulse Rate [Pulse Oximeter] 93 Respiratory Rate 20 20 Blood Pressure [Ri ght Arm] 134/82 Pulse Oximetry 96 96 Oxygen Delivery Me thod Room Air Room Air Transfer Discharge Sum: Data Data Completed and Pending Completed studies during hospitalization: 02/02/2025 EKG: Normal sinus rhythm, 100 beats per minute, anterior infarct, age undetermined. Discharge Plan Discharge Disposition: [facility] Discharge Location: [facility] Date of Admission: 02/02/25 15:11 Attending Provider on Discharge: Neisha Rodriguez Primary Care Provider: Odalys Conner Condition: Stable Discharge Orders: Transfer of Care to Other Hospital (ORDER); Ordered 02/03/25 Ordered By: Neisha Rodriguez Oxygen: No Urinary Catheter: No Services not available here: Cardiology
--- NOTE | 2025-02-03 13:36 | W.PC.NUTR.NO ---
Nutrition Progress Note Progress Note Progress Note: RDN with diet education related to new diagnosis of heart failure. Patient admitted for new diagnosis of heart failure. Limited weight history, however is stable. BMI is normal at 24.5 kg/m2. Meal intake since admit adequate at 100%. RDN visited with patient earlier and provided handouts of heart healthy diet. Visit was interrupted and RDN was going to return later in the day. RDN returned at approximately 1330 and patient reported he is being transferred. Patient was found to have severe biventricular failure. Will continue to monitor until transfer.
--- NOTE | 2025-02-03 13:45 | REH.SLP ---
Orders received, chart reviewed and case discussed with care team. Patient is being transferred to [facility] for cardiac care. Patient is tolerating a Regular diet with thin liquids per staff and his swallowing issues have been a chronic issue. Will defer evaluation to be completed at next level of care. Will cancel orders.
[2025-02-03 15:00] VITALS: BP 143/81; PULSE 78; RESP 20; TEMP 36.4; O2SAT 95
[2025-02-03 19:00] VITALS: BP 144/98; PULSE 77; RESP 20; TEMP 36.7; O2SAT 98
--- NOTE | 2025-02-03 19:16 | PC.NURSE ---
End of Shift Note: Patient was admitted last night and had an echo today and is not awaiting transfer to [facility]. His EF is 25% and report was given to Zuleyka CHAMPION nurse at [facility]. Awaiting EMS transport yet. Report given to Mahnaz CHAMPION who is now assuming his care until he transfers to [facility].
[2025-02-03] MEDS: ENOXAPARIN 40 MG/0.4 ML INJ SUBCUT (21:12)
[2025-02-03 23:00] VITALS: BP 135/87; PULSE 92; RESP 17; TEMP 36.5; O2SAT 93
== END 2025-02-03 23:43 | disposition short-term general hospital (02) | DRG 292 ==
LOC: ED 11:48 → MEDSURG 12:02
PROVIDERS: Admitting Provider Family Medicine; Emergency Provider Emergency Medicine; PCP Nurse Practitioner Family; Visit Provider Family Medicine
DX: I11.0 Hypertensive heart disease with heart failure (principal); E87.1 Hypo-osmolality and hyponatremia; I50.82 Biventricular heart failure; E11.9 Type 2 diabetes mellitus without complications; R21 Rash and other nonspecific skin eruption; R13.10 Dysphagia, unspecified; R09.A2 Foreign body sensation, throat; Z79.4 Long term (current) use of insulin; Z79.84 Long term (current) use of oral hypoglycemic drugs; Z86.718 Personal history of other venous thrombosis and embolism
CPT/HCPCS: 36415; 71046; 80048; 80076; 82962; 83735; 83880; 84145; 84443; 84484; 85025; 86140; 93005; 93306; 93970; 99284; 99285; A9270; J1650; J1815; J1938; Q9957

== ENCOUNTER 2025-02-03 23:37 | Outpatient (CLI) | payer MEDICAID, OTHER, SELFPAY | END 2025-02-03 23:38 | disposition home or self-care (01) | LOC: AMB 02-07 04:32 | PROVIDERS: PCP Nurse Practitioner Family; Visit Provider Family Medicine | DX: I50.82 Biventricular heart failure (principal) | CPT/HCPCS: A0425; A0427 ==